=== PATIENT | female | born 1955 | race Caucasian/White ===

== ENCOUNTER → 2024-01-02 11:02 | Outpatient (REF) | payer MEDICARE, OTHER, SELFPAY | LOC: WDC 11:02 | PROVIDERS: ATTENDING PHYSICIAN Family Medicine | DX: Z12.31 Encounter for screening mammogram for malignant neoplasm of breast (principal) | CPT/HCPCS: 77063; 77067 ==

== ENCOUNTER → 2024-03-13 11:05 | Outpatient (REF) | payer MEDICARE, OTHER, SELFPAY | LOC: HWRCS 11:05 | PROVIDERS: ATTENDING PHYSICIAN Internal Medicine Critical Care Medicine; FAMILY PHYSICIAN Family Medicine | DX: R94.2 Abnormal results of pulmonary function studies (principal) | CPT/HCPCS: 93306 ==

== ENCOUNTER → 2024-04-15 09:32 | Outpatient (REF) | payer MEDICARE, OTHER, SELFPAY | LOC: RST 09:32 | PROVIDERS: ATTENDING PHYSICIAN Internal Medicine Gastroenterology; FAMILY PHYSICIAN Family Medicine | DX: R11.0 Nausea (principal); T17.308A Unspecified foreign body in larynx causing other injury, initial encounter; R13.10 Dysphagia, unspecified | CPT/HCPCS: 74230; 92611 ==

== ENCOUNTER 2024-07-26 06:29 | Day surgery (SDC) | payer MEDICARE, OTHER, SELFPAY ==
[2024-07-26 11:45] VITALS: BMI 23.9
[2024-07-26 13:05] VITALS: BP 133/120
[2024-07-26 13:08] VITALS: BP 122/72
== END 2024-07-26 13:34 | disposition home or self-care (01) ==
LOC: SDS 06:29
PROVIDERS: ATTENDING PHYSICIAN Internal Medicine Gastroenterology
DX: D12.2 Benign neoplasm of ascending colon (principal); K57.30 Diverticulosis of large intestine without perforation or abscess without bleeding; Z86.010 Personal history of colon polyps
CPT/HCPCS: 45380; 88305

== ENCOUNTER → 2024-08-07 15:02 | Outpatient (REF) | payer MEDICARE, OTHER, SELFPAY | LOC: RAD 15:02 | PROVIDERS: ATTENDING PHYSICIAN Family Medicine | DX: R05.3 Chronic cough (principal); R91.8 Other nonspecific abnormal finding of lung field; C34.32 Malignant neoplasm of lower lobe, left bronchus or lung | CPT/HCPCS: 71046 ==

== ENCOUNTER → 2025-01-28 09:19 | Outpatient (REF) | payer MEDICARE, OTHER, SELFPAY | LOC: HWRAD 09:19 | PROVIDERS: ATTENDING PHYSICIAN Family Medicine | DX: Z12.31 Encounter for screening mammogram for malignant neoplasm of breast (principal); Z78.0 Asymptomatic menopausal state | CPT/HCPCS: 77063; 77067; 77080 ==